=== PATIENT | female | born 1950 | race Caucasian/White ===

== ENCOUNTER 2021-12-06 22:06 | Emergency (ER) | payer OTHER ==
[~2021-12-06] VITALS: Ht 165.1 cm; Wt 88.5 kg
[2021-12-06 22:57] LABS: CLARITY,URINE CLOUDY (CLEAR); COLOR,URINE YELLOW (YELLOW)
[2021-12-06 22:58] LABS: KETONES,URINE NEGATIVE (NEGATIVE); LEUKOCYTE ESTERASE ,URINE 1+ (NEGATIVE); NITRITE,URINE POSITIVE (NEGATIVE); PROTEIN,URINE DIPSTICK NEGATIVE (NEGATIVE); URINE UROBILINOGEN 0.2 mg/dL (0.2 - 1)
[2021-12-06 23:07] LABS: WBC,URINE (MAN) >50 /HPF (0-5)
[2021-12-06 23:08] LABS: BACTERIA,URINE MANY /HPF; EPITHELIAL CELLS,URINE FEW /LPF; RENAL EPITHELIAL CELLS,URINE FEW
[2021-12-06] MEDS ORDERED: LIDOCAINE HCL 1% LOCAL INJ 20 ML VIAL INJ ONE (23:30)
[2021-12-06] MEDS ORDERED: CEFTRIAXONE 1 GM VIAL IM ONE (23:30)
[2021-12-06] MEDS ORDERED: CEFDINIR300 MG PO (23:32)
[2021-12-06] MEDS ORDERED: LIDOCAINE HCL 1% 2 ML AMP ONE (23:45)
[2021-12-06] MEDS ORDERED: CEFTRIAXONE 1 GM VIAL ONE (23:45)
[2021-12-06 23:52] VITALS: BP 169/82
== END 2021-12-06 23:53 | disposition home or self-care (01) ==
LOC: ER 22:10
DX: N39.0 Urinary tract infection, site not specified (principal); B96.20 Unspecified Escherichia coli [E. coli] as the cause of diseases classified elsewhere; Z87.440 Personal history of urinary (tract) infections; I10 Essential (primary) hypertension; Z88.5 Allergy status to narcotic agent; Z88.0 Allergy status to penicillin
CPT/HCPCS: 81001; 87086; 87186; 99283; J0696; J2001